=== PATIENT | female | born 1985 | race Hispanic/Latino ===

== ENCOUNTER 2023-04-28 09:47 | Emergency (ER) | payer OTHER ==
[~2023-04-28] VITALS: Ht 170.2 cm; Wt 83.4 kg
[~2023-04-28 09:47] MED LIST: IBUPROFEN600 MG PO; PRE-NATAL PO
[2023-04-28 09:58] VITALS: BP 126/78
[2023-04-28 10:00] VITALS: BP 135/87
[2023-04-28] MEDS ORDERED: AMOX/K CLAV875 M1 PO (10:09)
[2023-04-28 10:15] VITALS: BP 105/64
[2023-04-28 10:36] VITALS: BP 105/64
== END 2023-04-28 10:37 | disposition home or self-care (01) | DRG 153 ==
LOC: ED 09:47
DX: J06.9 Acute upper respiratory infection, unspecified (principal)